=== PATIENT | female | born 1955 | race Caucasian/White ===

== ENCOUNTER 2021-01-30 13:59 | Outpatient (CLI) | payer OTHER ==
[~2021-01-30 13:59] MED LIST: LEVSIN/SL0.125 MG SL; PROTONIX20 MG PO
== END 2021-01-30 14:25 | disposition home or self-care (01) ==
LOC: SONOGRAMA 13:59 → MAMO-SONO 14:30
PROVIDERS: ATTEND Specialist
DX: N83.02 Follicular cyst of left ovary (principal)